=== PATIENT | female | born 1995 | race Caucasian/White ===

== ENCOUNTER 2017-11-15 10:04 | Inpatient (IN) | payer BC ==
[2017-11-15] MEDS ORDERED: Ondansetron 4 MG/2 ML SDV IVPUSH PRN (12:18)
[2017-11-15] MEDS ORDERED: Calcium Gluconate 10% 1 GM/10 ML SDV IV PRN (12:18)
[2017-11-15] MEDS ORDERED: Magnesium Sulfate/Water 4 GM in Premix Bag 1 BAG IV ONE (12:18)
[2017-11-15] MEDS ORDERED: Labetalol 100 MG/20 ML MDV IVPUSH ONE (12:18)
[2017-11-15] MEDS ORDERED: Magnesium Sulfate/Water 2 GM in Premix Bag 1 BAG IV ONE (12:18)
[2017-11-15] MEDS ORDERED: Sodium Chloride 0.9% 10 ML Syringe FLUSH PRN (12:18)
--- NOTE | 2017-11-15 12:23 | PCM.LDHP ---
L&D History of Present Illness - General Date of Service: 11/15/17 Admit Problem/Dx: Patient Status Order with Admit Dx/Problem 11/15/17 12:18 Patient Status [ADT] Routine Admission Diagnosis/Problem Admission Diagnosis/Problem Pre-eclampsia Source of Information: Patient History Limitations: Reports: No Limitations - History of Present Illness Introduction:: Patient is a 22 y/o at 38 0/7 wks who presented to L&D today for concerns of possible labor / decreased FM. Contractions started earlier this AM. Denies bleeding, LOF. No issues with headaches, vision changes, or RUQ pain. 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 Para: 0 LMP (Approximate): Social & Family History - Tobacco Use Smoking Status *Q: Former Smoker - Alcohol Use Alcohol Use History: No - Recreational Drug Use Recreational Drug Use: No H&P Review of Systems - Review of Systems: Review Of Systems: See Below General: Reports: No Symptoms Pulmonary: Reports: No Symptoms Cardiovascular: Reports: No Symptoms Gastrointestinal: Reports: No Symptoms Genitourinary: Reports: No Symptoms Musculoskeletal: Reports: No Symptoms Psychiatric: Reports: No Symptoms Neurological: Reports: No Symptoms L&D Exam - Exam Exam: See Below - Vital Signs Vital Signs: Last Vital Signs Temp 37.2 C 11/15/17 10:23 Pulse 60 11/15/17 10:23 Resp 18 11/15/17 10:23 BP 166/94 H 11/15/17 10:23 Pulse Ox 100 11/15/17 10:23 Weight: 87.09 kg - OB Specific Contraction Intensity: Moderate Movement: Active Heart Tones: Present Heart Tones per Min: 140 Heart Rate (FHR) Variability: Moderate (6-25 bmp) Presentation: Vertex - Hernandez Score Hernandez Score Cervix Position: Midposition Hernandez Score Consistency: Soft Hernandez Score Effacement: 31-50% Hernandez Score Dilation: Closed Hernandez Score 's Station: -2 Hernandez Score Total: 5 - Exam General: Alert, Oriented, Cooperative Lungs: Clear to Auscultation, Normal Respiratory Effort Cardiovascular: Regular Rate, Regular Rhythm GI/Abdominal Exam: Soft, Non-Tender Genitourinary: Normal external exam Extremities: Normal Inspection Skin: Warm, Dry, Intact Neurological: No: Clonus DTR: 3+: Patella (L), Patella (R) - Patient Data Lab Results Last 24 hrs: Laboratory Results - last 24 hr 11/15/17 11/15/17 Range/Units 11:45 11:45 WBC 9.92 (3.98-10.04) K/mm3 RBC 4.04 (3.98-5.22) M/mm3 Hgb 11.9 (11.2-15.7) gm/L Hct 35.7 (34.1-44.9) % MCV 88.4 (79.4-94.8) fl MCH 29.5 (25.6-32.2) pg MCHC 33.3 (32.2-35.5) g/dl RDW Std Deviation 46.1 (36.4-46.3) fL Plt Count 195 (182-369) K/mm3 MPV 10.3 (9.4-12.3) fl Neut % (Auto) 73.4 H (34.0-71.1) % Lymph % (Auto) 15.9 L (19.3-51.7) % Coffee % (Auto) 9.3 (4.7-12.5) % Eos % (Auto) 0.8 (0.7-5.8) Baso % (Auto) 0.2 (0.1-1.2) % Neut # (Auto) 7.28 H (1.56-6.13) K/mm3 Lymph # (Auto) 1.58 (1.18-3.74) K/mm3 [place] # (Auto) 0.92 H (0.24-0.36) K/mm3 Eos # (Auto) 0.08 (0.04-0.36) K/mm3 Baso # (Auto) 0.02 (0.01-0.08) K/mm3 BUN 3 L (7-18) mg/dL Creatinine 0.6 (0.55-1.02) mg/dL Est Cr Clr Drug Dosing 118.29 mL/min Estimated GFR (MDRD) > 60 (>60) mL/min AST 20 (15-37) U/L ALT 16 (14-59) U/L Result Diagrams: 11/15/17 11:45 11/15/17 11:45 - Problem List (1) 38 weeks gestation of SNOMED Code(s): 60797457 ICD Code: Z3A.38 - 38 WEEKS GESTATION OF Status: Acute Current Visit: Yes (2) Preeclampsia SNOMED Code(s): 016192813 ICD Code: O14.90 - UNSPECIFIED PRE-ECLAMPSIA, UNSPECIFIED TRIMESTER Status : Acute Current Visit: Yes Qualifiers: Trimester: third trimester Qualified Code(s): O14.93 - Unspecified pre- eclampsia, third trimester Problem List Initiated/Reviewed/Updated: Yes Orders Last 24hrs: Active Orders 24 hr Category Date Time Status Patient Status [ADT] Routine ADT 11/15/17 12:18 Ordered Bedrest Bathroom Privileges [RC] ASDIRECTED Care 11/15/17 12:21 Ordered Bedrest [RC] ASDIRECTED Care 11/15/17 12:18 Ordered Communication Order [RC] ASDIRECTED Care 11/15/17 12:18 Ordered Communication Order [RC] ASDIRECTED Care 11/15/17 12:18 Ordered Monitoring [RC] CONTINUOUS Care 11/15/17 12:18 Ordered Non Stress Test [RC] PER UNIT ROUTINE Care 11/15/17 12:18 Ordered Notify Provider Status Change [RC] ASDIRECTED Care 11/15/17 12:18 Ordered Notify Provider Vital Signs [RC] ASDIRECTED Care 11/15/17 12:18 Ordered Notify Provider [RC] ASDIRECTED Care 11/15/17 12:18 Ordered Notify Provider [RC] PRN Care 11/15/17 12:18 Ordered Oxygen Therapy [RC] PRN Care 11/15/17 12:18 Ordered Peripheral IV Care [RC] . DIRECTED Care 11/15/17 12:22 Ordered Vital Signs [RC] ASDIRECTED Care 11/15/17 12:18 Ordered Regular Diet [DIET] Diet 11/15/17 Lunch Ordered ALANINE AMINOTRANSFERASE,ALT [CHEM] Stat Lab 11/15/17 11:45 Results ASPARTATE AMNIOTRANSFERASE,AST [CHEM] Stat Lab 11/15/17 11:45 Results BLOOD UREA NITROGEN,BUN [CHEM] Stat Lab 11/15/17 11:45 Results CREATININE W/GFR [CHEM] Stat Lab 11/15/17 11:45 Results LACTATE DEHYDROGENASE,LDH [CHEM] Stat Lab 11/15/17 11:45 Results RAPID PLASMA REAGIN,RPR [CHEM] Routine Lab 11/15/17 12:18 Ordered TYPE AND SCREEN [BBK] Routine Lab 11/15/17 12:18 Ordered UA W/O MICROSCOPIC [URIN] Stat Lab 11/15/17 11:31 Ordered URIC ACID [CHEM] Stat Lab 11/15/17 11:45 Results Calcium Gluconate Med 11/15/17 12:18 Ordered 1 gm IV ASDIRECTED PRN Labetalol [Normodyne] Med 11/15/17 12:18 Once 20 mg IVPUSH ONETIME ONE Lactated Ringers [Ringers, Lactated] 1,000 ml Med 11/15/17 12:30 Ordered IV ASDIRECTED Magnesium Sulfate/Water [Magnesium Sulfate 2 GM in Med 11/15/17 12:18 Ordered Water 50 ML] 2 gm Premix Bag 1 bag IV ONETIME Magnesium Sulfate/Water [Magnesium Sulfate 4 GM in Med 11/15/17 12:18 Ordered Water 100 ML] 4 gm Premix Bag 1 bag IV ONETIME Magnesium Sulfate/Water [Magnesium Sulfate 40 GM in Med 11/15/17 12:30 Ordered Water 1000 ML] 40 gm in 1,000 ml IV ASDIRECTED Nalbuphine [Nubain] Med 11/15/17 12:18 Ordered 10 mg IVPUSH Q2H PRN Ondansetron [Zofran] Med 11/15/17 12:18 Ordered 4 mg IVPUSH Q4H PRN Oxytocin/Lactated Ringers [Pitocin in LR 10 Units/1,000 Med 11/15/17 12:30 Ordered ML] 10 unit in 1,000 ml IV .CONTINUOUS Sodium Chloride 0.9% [Saline Flush] Med 11/15/17 12:18 Ordered 10 ml FLUSH ASDIRECTED PRN Blood Pressure [OM.PC] ASDIRECTED Oth 11/15/17 12:30 Ordered Deep Tendon Reflexes [WOMSER] ASDIRECTED Oth 11/15/17 12:30 Ordered Electronic Heart Tones Internal [WOMSER] Per Unit Oth 11/15/17 12:18 Ordered Routine Medication Administration Instruction [OM.PC] Per Unit Oth 11/15/17 12:20 Ordered Routine PIH Panel [OM.PC] Stat Ot 11/15/17 11:30 Ordered Peripheral IV Insertion Adult [OM.PC] Urgent Oth 11/15/17 12:18 Ordered Resuscitation Status Routine Resus Stat 11/15/17 12:18 Ordered Assessment/Plan Comment:: 22 y/o at 38 0/7 wks who presented with concerns for labor. Cervix not dilated, however, patient with multiple upper range mild BP's and also several severe range BP's. Labs done and WNL. Will start IOL for preeclampsia with severe features. Sharpe bulb placed. Will place cytotec if contractions begin to space out. IV labetalol to be given for findings of severe range BP's. Will then start magnesium. Pain management per patient preference. GBS negative, no need for antibiotics. Anticipate
[2017-11-15] MEDS ORDERED: Oxytocin/Lactated Ringers 10 UNIT/1,000 ML BAG IV SCH ×2 (12:30→19:15)
[2017-11-15] MEDS ORDERED: Magnesium Sulfate/Water 100 ML ONE (12:32)
[2017-11-15] MEDS: Lactated Ringers 1,000 ML IV SCH (12:50)
[2017-11-15] MEDS: Magnesium Sulfate/Water 40 GM/1,000 ML BAG IV SCH (13:59)
[2017-11-15] MEDS ORDERED: Misoprostol 25 MCG (1/4 of 100 MCG) Tab VAG SCH (15:00)
[2017-11-15] MEDS ORDERED: Acetaminophen 325 MG Tab PO PRN (16:31)
--- NOTE | 2017-11-15 20:16 | PCM.PNLD ---
Labor Progress Note - VS & Meds Vital Signs: Last Vital Signs Temp 36.7 C 11/15/17 12:18 Pulse 81 11/15/17 12:50 Resp 16 11/15/17 12:18 BP 146/89 H 11/15/17 12:50 Pulse Ox 98 11/15/17 12:18 Active Medications: Current Medications Acetaminophen (Tylenol) 650 mg PO Q4H PRN PRN Reason: Pain Last Admin: 11/15/17 17:00 Dose: 650 mg Calcium Gluconate (Calcium Gluconate) 1 gm IV ASDIRECTED PRN PRN Reason: respiratory distress Lactated Ringer's (Ringers, Lactated) 1,000 mls @ 75 mls/hr IV ASDIRECTED ANDRÉS Last Infusion: 11/15/17 19:31 Dose: 50 mls/hr Magnesium Sulfate (Magnesium Sulfate 40 Gm In Water 1000 Ml) 40 gm in 1,000 mls @ 50 mls/hr IV ASDIRECTED ANDRÉS Last Admin: 11/15/17 13:59 Dose: 50 mls/hr Oxytocin/Lactated Ringer's (Pitocin In Lr 10 Units/1,000 Ml) 10 unit in 1,000 mls @ 500 mls/hr IV .CONTINUOUS ANDRÉS Oxytocin/Lactated Ringer's (Pitocin In Lr 10 Units/1,000 Ml) 10 unit in 1,000 mls @ 12 mls/hr IV TITRATE ANDRÉS; Protocol Last Admin: 11/15/17 19:29 Dose: 2 munits/min, 12 mls/hr Misoprostol (Cytotec) 25 mcg VAG .ONETIME ANDRÉS Last Admin: 11/15/17 15:04 Dose: 25 mcg Nalbuphine HCl (Nubain) 10 mg IVPUSH Q2H PRN PRN Reason: pain Ondansetron HCl (Zofran) 4 mg IVPUSH Q4H PRN PRN Reason: Nausea/Vomiting Sodium Chloride (Saline Flush) 10 ml FLUSH ASDIRECTED PRN PRN Reason: Keep Vein Open Discontinued Medications Magnesium Sulfate 4 gm/ Premix 100 mls @ 300 mls/hr IV ONETIME ONE Stop: 11/15/17 12:37 Last Admin: 11/15/17 13:04 Dose: 300 mls/hr Magnesium Sulfate 2 gm/ Premix 50 mls @ 300 mls/hr IV ONETIME ONE Stop: 11/15/17 12:27 Last Admin: 11/15/17 12:55 Dose: 300 mls/hr Magnesium Sulfate (Magnesium Sulfate 4 Gm In Water 100 Ml) Confirm Administered Dose 100 mls @ as directed .ROUTE .STK-MED ONE Stop: 11/15/17 12:33 Last Admin: 11/15/17 16:05 Dose: Not Given Labetalol HCl (Normodyne) 20 mg IVPUSH ONETIME ONE; Protocol Stop: 11/15/17 12:19 Last Admin: 11/15/17 12:50 Dose: 20 mg - Uterine Contractions Uterine Monitoring Mode: External [place] Contraction Intensity: Moderate - Monitoring Monitor Mode: External Ultrasound Heart Rate (FHR) Baseline: 140 Heart Rate (FHR) Variability: Moderate (6-25 bmp) Accelerations: Present, 15x15 Decelerations: None - Labor Progress (Free Text) Labor Progress: Doing well. Cytotec placed at 1500 due to contractions spacing out. Sharpe bulb remains in place. Will monitor uterine activity, cytotec vs initiation of pitocin in 1 hour. BP's mild range since labetalol and magnesium. Continue to monitor closely
[2017-11-15] MEDS ORDERED: Bupivacaine 0.25% 10 ML SDV ONE (22:00)
[2017-11-15] MEDS: Nalbuphine 20 MG/ML 1 ML Syringe IVPUSH PRN (22:44)
[2017-11-16] MEDS: Nalbuphine 20 MG/ML 1 ML Syringe IVPUSH PRN (01:13)
[2017-11-16] MEDS ORDERED: ePHEDrine 50 MG/ML SDV IVPUSH PRN (02:20)
[2017-11-16] MEDS ORDERED: fentaNYL 100 MCG/2 ML SDV EPIDUR PRN (02:20)
[2017-11-16] MEDS ORDERED: diphenhydrAMINE 50 MG/ML SDV IVPUSH PRN ×2 (02:20→16:31)
[2017-11-16] MEDS: Bupivacaine/fentaNYL/NS 100 ML Bag EPIDUR SCH ×2 (02:49→10:20)
--- NOTE | 2017-11-16 02:55 | PCM.PREANE ---
Preanesthetic Assessment - Anesthesia/Transfusion/Family Hx Anesthesia History: No Prior Anesthesia Family History of Anesthesia Reaction: No Transfusion History: No Prior Transfusion(s) - Review of Systems General: No Symptoms Pulmonary: No Symptoms Cardiovascular: No Symptoms Gastrointestinal: Abdominal Pain (labor contractions) Neurological: No Symptoms Other: Reports: None - Physical Assessment Pulse: 81 O2 Sat by Pulse Oximetry: 98 Respiratory Rate: 16 Blood Pressure: 146/89 Temperature: 36.3 C Vital Signs: Last Vital Signs Temp 36.7 C 11/15/17 12:18 Pulse 81 11/15/17 12:50 Resp 16 11/15/17 12:18 BP 146/89 H 11/15/17 12:50 Pulse Ox 98 11/15/17 12:18 Height: 1.57 m Weight: 87.09 kg ASA Class: 2 Mental Status: Alert & Oriented x3 Airway Class: Mallampati = 1 Dentition: Reports: Normal Dentition Thyro-Mental Finger Breadths: 3 Mouth Opening Finger Breadths: 3 ROM/Head Extension: Full Lungs: Clear to Auscultation, Normal Respiratory Effort Cardiovascular: Regular Rate, Regular Rhythm - Lab Values: Laboratory Last Values WBC 9.92 K/mm3 (3.98-10.04) 11/15/17 11:45 RBC 4.04 M/mm3 (3.98-5.22) 11/15/17 11:45 Hgb 11.9 gm/L (11.2-15.7) 11/15/17 11:45 Hct 35.7 % (34.1-44.9) 11/15/17 11:45 MCV 88.4 fl (79.4-94.8) 11/15/17 11:45 MCH 29.5 pg (25.6-32.2) 11/15/17 11:45 MCHC 33.3 g/dl (32.2-35.5) 11/15/17 11:45 RDW Std Deviation 46.1 fL (36.4-46.3) 11/15/17 11:45 Plt Count 195 K/mm3 (182-369) 11/15/17 11:45 MPV 10.3 fl (9.4-12.3) 11/15/17 11:45 Neut % (Auto) 73.4 % (34.0-71.1) H 11/15/17 11:45 Lymph % (Auto) 15.9 % (19.3-51.7) L 11/15/17 11:45 [place] % (Auto) 9.3 % (4.7-12.5) 11/15/17 11:45 Eos % (Auto) 0.8 (0.7-5.8) 11/15/17 11:45 Baso % (Auto) 0.2 % (0.1-1.2) 11/15/17 11:45 Neut # (Auto) 7.28 K/mm3 (1.56-6.13) H 11/15/17 11:45 Lymph # (Auto) 1.58 K/mm3 (1.18-3.74) 11/15/17 11:45 [place] # (Auto) 0.92 K/mm3 (0.24-0.36) H 11/15/17 11:45 Eos # (Auto) 0.08 K/mm3 (0.04-0.36) 11/15/17 11:45 Baso # (Auto) 0.02 K/mm3 (0.01-0.08) 11/15/17 11:45 BUN 3 mg/dL (7-18) L 11/15/17 11:45 Creatinine 0.6 mg/dL (0.55-1.02) 11/15/17 11:45 Est Cr Clr Drug Dosing 118.29 mL/min 11/15/17 11:45 Estimated GFR (MDRD) > 60 mL/min (>60) 11/15/17 11:45 Uric Acid 6.1 mg/dL (2.6-6.0) H 11/15/17 11:45 AST 20 U/L (15-37) 11/15/17 11:45 ALT 16 U/L (14-59) 11/15/17 11:45 Lactate Dehydrogenase 157 U/L (81-234) 11/15/17 11:45 Urine Color Yellow (Yellow) 11/15/17 15:08 Urine Appearance Slt cloudy (Clear) H 11/15/17 15:08 Urine pH 7.0 (5.0-8.0) 11/15/17 15:08 Ur Specific [place] > or = 1.030 (1.005-1.030) 11/15/17 15:08 Urine Protein Negative (Negative) 11/15/17 15:08 Urine Glucose (UA) Negative (Negative) 11/15/17 15:08 Urine Ketones 1+ (Negative) H 11/15/17 15:08 Urine Occult Blood Trace-lysed (Negative) H 11/15/17 15:08 Urine Nitrite Negative (Negative) 11/15/17 15:08 Urine Bilirubin Negative (Negative) 11/15/17 15:08 Urine Urobilinogen 0.2 (0.2-1.0) 11/15/17 15:08 Ur Leukocyte Esterase Negative (Negative) 11/15/17 15:08 RPR Non-reactive (NONREACTIVE) 11/15/17 11:45 Blood Type O POSITIVE 11/15/17 11:45 Gel Antibody Screen Negative 11/15/17 11:45 - Allergies Allergies/Adverse Reactions: Allergies Allergy/AdvReac Type Severity Reaction Status Date / Time No Known Allergies Allergy Verified 11/15/17 11:30 - Anesthesia Plan Pre-Op Medication Ordered: None - Acknowledgements Anesthesia Type Planned: Epidural Pt an Appropriate Candidate for the Planned Anesthesia: Yes Alternatives and Risks of Anesthesia Discussed w Pt/Guardian: Yes Pt/Guardian Understands and Agrees with Anesthesia Plan: Yes PreAnesthesia Questionnaire - Past Health History Medical/Surgical History: Denies Medical/Surgical History Gastrointestinal History: Reports: GERD 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 Smoking Status *Q: Former Smoker Second Hand Smoke Exposure: No Recreational Drug Use History: No - HOME MEDS Home Medications: Home Meds Vits #93/Iron Fum/FA [ Formula Tablet] 1 tab PO DAILY 11/15/17 [History] Pseudoephedrine HCl [Sudafed] 1 tab PO DAILY 11/15/17 [History] - CURRENT (IN HOUSE) MEDS Current Meds: Current Medications Acetaminophen (Tylenol) 650 mg PO Q4H PRN PRN Reason: Pain Last Admin: 11/15/17 17:00 Dose: 650 mg Calcium Gluconate (Calcium Gluconate) 1 gm IV ASDIRECTED PRN PRN Reason: respiratory distress Diphenhydramine HCl (Benadryl) 25 mg IVPUSH Q6H PRN PRN Reason: Itching Ephedrine Sulfate (Ephedrine Sulfate) 5 mg IVPUSH ASDIRECTED PRN PRN Reason: HYPOTENTSION Fentanyl (Sublimaze) 100 mcg EPIDUR Q3H PRN PRN Reason: Pain Last Admin: 11/16/17 02:48 Dose: 100 mcg Fentanyl/Bupivacaine HCl (Fentanyl/Bupivacaine/Ns 2 Mcg-0.125% 100 Ml) 100 ml EPIDUR ASDIRECTED ANDRÉS Last Admin: 11/16/17 02:49 Dose: 100 ml Lactated Ringer's (Ringers, Lactated) 1,000 mls @ 75 mls/hr IV ASDIRECTED ANDRÉS Last Infusion: 11/16/17 00:07 Dose: 5 mls/hr Magnesium Sulfate (Magnesium Sulfate 40 Gm In Water 1000 Ml) 40 gm in 1,000 mls @ 50 mls/hr IV ASDIRECTED ANDRÉS Last Admin: 11/15/17 13:59 Dose: 50 mls/hr Oxytocin/Lactated Ringer's (Pitocin In Lr 10 Units/1,000 Ml) 10 unit in 1,000 mls @ 500 mls/hr IV .CONTINUOUS ANDRÉS Oxytocin/Lactated Ringer's (Pitocin In Lr 10 Units/1,000 Ml) 10 unit in 1,000 mls @ 12 mls/hr IV TITRATE ANDRÉS; Protocol Last Titration: 11/15/17 23:50 Dose: 11 munits/min, 66 mls/hr Misoprostol (Cytotec) 25 mcg VAG .ONETIME ANDRÉS Last Admin: 11/15/17 15:04 Dose: 25 mcg Nalbuphine HCl (Nubain) 10 mg IVPUSH Q2H PRN PRN Reason: pain Last Admin: 11/16/17 01:13 Dose: 10 mg Ondansetron HCl (Zofran) 4 mg IVPUSH Q4H PRN PRN Reason: Nausea/Vomiting Sodium Chloride (Saline Flush) 10 ml FLUSH ASDIRECTED PRN PRN Reason: Keep Vein Open Discontinued Medications Magnesium Sulfate 4 gm/ Premix 100 mls @ 300 mls/hr IV ONETIME ONE Stop: 11/15/17 12:37 Last Admin: 11/15/17 13:04 Dose: 300 mls/hr Magnesium Sulfate 2 gm/ Premix 50 mls @ 300 mls/hr IV ONETIME ONE Stop: 11/15/17 12:27 Last Admin: 11/15/17 12:55 Dose: 300 mls/hr Magnesium Sulfate (Magnesium Sulfate 4 Gm In Water 100 Ml) Confirm Administered Dose 100 mls @ as directed .ROUTE .STK-MED ONE Stop: 11/15/17 12:33 Last Admin: 11/15/17 16:05 Dose: Not Given Labetalol HCl (Normodyne) 20 mg IVPUSH ONETIME ONE; Protocol Stop: 11/15/17 12:19 Last Admin: 11/15/17 12:50 Dose: 20 mg
[2017-11-16] MEDS: Lactated Ringers 1,000 ML IV SCH ×2 (05:26→21:00)
[2017-11-16] MEDS ORDERED: Oxytocin/Lactated Ringers 20 UNIT/1,000 ML BAG IV SCH ×2 (07:00→09:15)
--- NOTE | 2017-11-16 08:00 | PCM.PNLD ---
Labor Progress Note - VS & Meds Vital Signs: Last Vital Signs Temp 36.3 C 11/16/17 02:55 Pulse 81 11/16/17 02:55 Resp 16 11/16/17 02:55 BP 146/89 H 11/16/17 02:55 Pulse Ox 98 11/16/17 02:55 Active Medications: Current Medications Acetaminophen (Tylenol) 650 mg PO Q4H PRN PRN Reason: Pain Last Admin: 11/15/17 17:00 Dose: 650 mg Calcium Gluconate (Calcium Gluconate) 1 gm IV ASDIRECTED PRN PRN Reason: respiratory distress Diphenhydramine HCl (Benadryl) 25 mg IVPUSH Q6H PRN PRN Reason: Itching Ephedrine Sulfate (Ephedrine Sulfate) 5 mg IVPUSH ASDIRECTED PRN PRN Reason: HYPOTENTSION Fentanyl (Sublimaze) 100 mcg EPIDUR Q3H PRN PRN Reason: Pain Last Admin: 11/16/17 02:48 Dose: 100 mcg Fentanyl/Bupivacaine HCl (Fentanyl/Bupivacaine/Ns 2 Mcg-0.125% 100 Ml) 100 ml EPIDUR ASDIRECTED ANDRÉS Last Admin: 11/16/17 02:49 Dose: 100 ml Lactated Ringer's (Ringers, Lactated) 1,000 mls @ 75 mls/hr IV ASDIRECTED ANDRÉS Last Infusion: 11/16/17 07:20 Dose: 30 mls/hr Magnesium Sulfate (Magnesium Sulfate 40 Gm In Water 1000 Ml) 40 gm in 1,000 mls @ 50 mls/hr IV ASDIRECTED ANDRÉS Last Admin: 11/15/17 13:59 Dose: 50 mls/hr Oxytocin/Lactated Ringer's (Pitocin In Lr 10 Units/1,000 Ml) 10 unit in 1,000 mls @ 500 mls/hr IV .CONTINUOUS ANDRÉS Oxytocin/Lactated Ringer's (Pitocin In Lr 10 Units/1,000 Ml) 10 unit in 1,000 mls @ 12 mls/hr IV TITRATE ANDRÉS; Protocol Last Titration: 11/16/17 06:43 Dose: 15 munits/min, 90 mls/hr Oxytocin/Lactated Ringer's (Pitocin In Lr 20 Units/1,000 Ml) 20 unit in 1,000 mls @ 45 mls/hr IV TITRATE ANDRÉS; Protocol Last Admin: 11/16/17 07:17 Dose: 45 mls/hr Misoprostol (Cytotec) 25 mcg VAG .ONETIME ANDRÉS Last Admin: 11/15/17 15:04 Dose: 25 mcg Nalbuphine HCl (Nubain) 10 mg IVPUSH Q2H PRN PRN Reason: pain Last Admin: 11/16/17 01:13 Dose: 10 mg Ondansetron HCl (Zofran) 4 mg IVPUSH Q4H PRN PRN Reason: Nausea/Vomiting Sodium Chloride (Saline Flush) 10 ml FLUSH ASDIRECTED PRN PRN Reason: Keep Vein Open Discontinued Medications Magnesium Sulfate 4 gm/ Premix 100 mls @ 300 mls/hr IV ONETIME ONE Stop: 11/15/17 12:37 Last Admin: 11/15/17 13:04 Dose: 300 mls/hr Magnesium Sulfate 2 gm/ Premix 50 mls @ 300 mls/hr IV ONETIME ONE Stop: 11/15/17 12:27 Last Admin: 11/15/17 12:55 Dose: 300 mls/hr Magnesium Sulfate (Magnesium Sulfate 4 Gm In Water 100 Ml) Confirm Administered Dose 100 mls @ as directed .ROUTE .STK-MED ONE Stop: 11/15/17 12:33 Last Admin: 11/15/17 16:05 Dose: Not Given Oxytocin 20 unit/ Lactated (Ringer's) 1,002 mls @ 45.09 mls/hr IV TITRATE [facility] Labetalol HCl (Normodyne) 20 mg IVPUSH ONETIME ONE; Protocol Stop: 11/15/17 12:19 Last Admin: 11/15/17 12:50 Dose: 20 mg - Uterine Contractions Uterine Monitoring Mode: External [place] Contraction Intensity: Moderate - Monitoring Monitor Mode: External Ultrasound Heart Rate (FHR) Baseline: 120 Heart Rate (FHR) Variability: Moderate (6-25 bmp) Accelerations: Present, 15x15 Decelerations: None - Vaginal Exam Dilation (cm): 4 Effacement (Percent): 70 Station: -1 Cervical Position: Midposition - Labor Progress (Free Text) Labor Progress: Doing well. Had SROM around 0130 and became very uncomfortable and had epidural placed shortly thereafter. Pitocin currently at 13. BP''s mild range. Cervix exam similar to around time of SROM. IUPC placed for more accurate titration of pitocin. Will reassess in another few hours.
[2017-11-16] MEDS: Magnesium Sulfate/Water 40 GM/1,000 ML BAG IV SCH (10:05)
[2017-11-16] MEDS ORDERED: Nalbuphine 20 MG/ML 1 ML Syringe IVPUSH PRN (14:46)
[2017-11-16] MEDS ORDERED: ceFAZolin 2 GM in Premix Bag 1 BAG IV ONE (14:46)
[2017-11-16] MEDS ORDERED: Citric Acid/Sodium Citrate Solution 30 ML Cup PO ONE (14:46)
[2017-11-16] MEDS ORDERED: Metoclopramide 10 MG/2 ML SDV IVPUSH ONE (14:46)
[2017-11-16] MEDS ORDERED: Lactated Ringers 2,000 ML ONE (15:01)
[2017-11-16] MEDS ORDERED: Ondansetron 4 MG/2 ML SDV ONE (15:01)
[2017-11-16] MEDS ORDERED: ceFAZolin 1 GM Vial ONE (15:01)
[2017-11-16] MEDS ORDERED: Ketorolac 30 MG/ML SDV ONE (15:01)
[2017-11-16] MEDS ORDERED: Oxytocin 10 Units/1 ML SDV ONE (15:01)
[2017-11-16] MEDS ORDERED: Lidocaine 2% with EPINEPHrine 1:200,000 20 ML SDV ONE (15:02)
[2017-11-16] MEDS ORDERED: Sodium Bicarbonate 8.4% 50 MEQ/50 ML SDV ONE (15:02)
--- NOTE | 2017-11-16 15:02 | PCM.SN ---
- Free Text/Narrative Note: 1430 Patient has been on 30 of pitocin. Contractions adequate or just beneath 200 MVU's. Reviewed with patient that her cervix has been the same since about 0100 this am at time of rupture. Options at this time are we can discontinue pitocin and do a washout and re-start. This would be an appropriate option as and maternal status are reassuring. Other option is that we can move forward with a . Patient and her partner given option to discuss by themselves and ultimately have decided to move forward with a . Anesthesia, peds teams made aware. Elisabeth Mosley MD
[2017-11-16] MEDS ORDERED: Morphine PF 1 MG/ML Amp ONE ×2 (15:08)
[2017-11-16] MEDS ORDERED: Morphine PF 10 MG/10 ML SDV ONE (15:08)
[2017-11-16] MEDS ORDERED: fentaNYL 100 MCG/2 ML SDV ONE (15:08)
[2017-11-16] MEDS ORDERED: Phenylephrine/Normal Saline 100 MCG/ML 10 ML Syringe ONE (16:07)
--- NOTE | 2017-11-16 16:23 | PCM.OPNOTE ---
- General Post-Op/Procedure Note Date of Surgery/Procedure: 11/16/17 Operative Procedure(s): Primary low transverse Findings: Baby Boy in a vertex presentation with weight of 6 lbs 4 oz. Apgars of 8 & 9. Normal appearance of uterus, fallopian tubes, and ovaries Pre Op Diagnosis: 38 weeks gestation. Severe preeclampsia. Failure to progress in 1st stage Post-Op Diagnosis: Same Anesthesia Technique: Epidural Primary Surgeon: Elisabeth Mosley Secondary Surgeon: Cristy Stahl Anesthesia Provider: Ariadna Luke Reason Sound Assistant Was Necessary: Speed, safety of case. Pathology: Cord blood collected. Placenta discarded. Fluid Replacement, Intraop: 900 Output, Urine Amount: 200 EBL in mLs: 1,000 Complications: None Condition: Good Free Text/Narrative:: The risks, benefits, indications, potential complications, and alternatives were explained to the patient and informed consent obtained. After induction of anesthesia, the patient was placed in a supine position and then draped and prepped in the usual sterile manner. A Pfannenstiel incision was made and carried down through the subcutaneous tissue to the fascia. Fascial incision was made and extended transversely. The fascia was from the underlying rectus tissue superiorly and inferiorly. The peritoneum was identified and entered. Peritoneal incision was extended longitudinally. The utero-vesical peritoneal reflection was incised transversely and the bladder flap was bluntly freed from the lower uterine segment. A low transverse uterine incision was made sharply with a scalpel and extended bluntly in a cephalocaudad direction. A baby boy was delivered from a vertex presentation with APGARS as above. After the umbilical cord was clamped and cut cord blood was obtained for evaluation. The placenta was removed intact and appeared normal. The uterus was exteriorized and cleared of clots. The uterine outline, tubes and ovaries appeared normal. The uterine incision was closed with running locked sutures of 0 Vicryl. Hemostasis was obtained with a second imbricating layer of 0 vicryl. The uterus was then placed back into the abdomen. The infracolic gutters were cleared of blood clots. The fascia was then reapproximated with running sutures of 0 Vicryl. The sucutaneous tissue was irrigated with sterile warm normal saline, hemostasis obtained with cautery. This layer was also closed with a running 0 vicryl suture. The skin was reapproximated with running Subcuticular 4-0 monocryl sutures. Instrument, sponge, and needle counts were correct prior the abdominal closure and at the conclusion of the case.
--- NOTE | 2017-11-16 16:30 | PCM.POSTAN ---
POST ANESTHESIA ASSESSMENT - MENTAL STATUS Mental Status: Alert, Oriented - VITAL SIGNS Pulse Rate: 88 SaO2: 99 Resp Rate: 18 Blood Pressure: 131/70 Temperature: 36.3 C - RESPIRATORY Respiratory Status: Respiratory Rate WNL, Airway Patent, O2 Saturation Stable, Supplemental Oxygen - CARDIOVASCULAR CV Status: Pulse Rate WNL, Blood Pressure Stable - GASTROINTESTINAL GI Status: No Symptoms - PAIN Pain Score: 0 - POST OP HYDRATION Hydration Status: Adequate & Stable
[2017-11-16] MEDS ORDERED: Meperidine PF 50 MG/ML Syringe IVPUSH PRN (16:31)
[2017-11-16] MEDS ORDERED: Ondansetron 4 MG/2 ML SDV IVPUSH PRN (16:31)
[2017-11-16] MEDS ORDERED: Ibuprofen 600 MG Tab PO PRN (18:09)
[2017-11-16] MEDS ORDERED: Acetaminophen/oxyCODONE 325-5 MG Tab PO PRN (18:09)
[2017-11-16] MEDS ORDERED: Docusate Sodium 100 MG Cap PO PRN (18:09)
[2017-11-16] MEDS ORDERED: Naloxone 0.4 MG/ML SDV IVPUSH PRN (18:09)
[2017-11-16] MEDS ORDERED: Lanolin 100% Cream 7 GM Tube TOP PRN (18:09)
[2017-11-16] MEDS ORDERED: Ondansetron 4 MG/2 ML SDV IV PRN (18:09)
[2017-11-16] MEDS: Ketorolac 30 MG/ML SDV IVPUSH SCH (22:32)
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
[2017-11-17] MEDS: Ketorolac 30 MG/ML SDV IVPUSH SCH ×2 (05:11→10:09)
[2017-11-17] MEDS: Magnesium Sulfate/Water 40 GM/1,000 ML BAG IV SCH (08:03)
[2017-11-17] MEDS: Lactated Ringers 1,000 ML IV SCH (10:10)
[2017-11-17] MEDS: Ibuprofen 600 MG Tab PO PRN ×2 (16:17→23:08)
--- NOTE | 2017-11-17 18:08 | PCM48HPAN ---
Post Anesthesia Note - EVALUATION WITHIN 48HRS OF ANESTHETIC Vital Signs in Normal Range: Yes Patient Participated in Evaluation: Yes Respiratory Function Stable: Yes Airway Patent: Yes Cardiovascular Function Stable: Yes Hydration Status Stable: Yes Pain Control Satisfactory: Yes Nausea and Vomiting Control Satisfactory: Yes Mental Status Recovered: Yes - COMMENTS/OBSERVATIONS Free Text/Narrative:: Patient denies any anesthetic complications. Doing well resting in bed.
[2017-11-17] MEDS ORDERED: Acetaminophen 325 MG/10.15 ML ML PO PRN (21:28)
[2017-11-18] MEDS ORDERED: Acetaminophen 325 MG Tab PO PRN (00:40)
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
--- NOTE | 2017-11-18 10:22 | PCM.DCSUM1 ---
Discharge Summary - Discharge Data Discharge Date: 11/18/17 Discharge Disposition: Home, Self-Care 01 Condition: Good - Discharge Diagnosis/Problem(s) (1) 38 weeks gestation of SNOMED Code(s): 14659710 ICD Code: Z3A.38 - 38 WEEKS GESTATION OF Status: Acute Current Visit: Yes (2) Preeclampsia SNOMED Code(s): 279292610 ICD Code: O14.90 - UNSPECIFIED PRE-ECLAMPSIA, UNSPECIFIED TRIMESTER Status : Acute Current Visit: Yes Qualifiers: Trimester: third trimester Qualified Code(s): O14.93 - Unspecified pre- eclampsia, third trimester (3) Failure to progress in first stage of labor SNOMED Code(s): 087225822 ICD Code: KZM4880 - Status: Acute Current Visit: Yes (4) S/P primary low transverse SNOMED Code(s): 347591555, 63751909, 854375928, 717739912, 670328836 ICD Code: Z98.891 - HISTORY OF UTERINE SCAR FROM PREVIOUS SURGERY Status: Acute Current Visit: Yes - Patient Summary/Data Operative Procedure(s) Performed: Primary low transverse Complications: None Consults: None Recommended Follow-up Testing/Procedures: Follow up in 1 week for BP check / incision check Hospital Course: 22 y/o who presented at 38 0/7 wks with concerns of early labor. Was sergei, but only 0.5 cm dilated. Unfortunately found to be severe preeclampsia with multiple severe range BPs. Was started on IV antihypertensives and IV magnesium. Early labor augmented with vanegas bulb and cytotec. Did eventually switch to pitocin with expulsion of vanegas bulb. She had SROM, but despite 30 units of pitocin and adequate contraction pattern did not progress past 4-5 cm. Was given option for washout and re-trial of pitocin (as and maternal status reassuring) vs PLTCS and opted for . This was uncomplicated. See procedure note for full details. she was maintained on magnesium for 24 hours. She did well with normal to mild range BP's. She was discharged home on POD#2 per her request - Patient Instructions Diet: Regular Diet as Tolerated Activity: No Lifting Over 10 Pounds Activity, Other: Pelvic Rest for 6 weeks Driving: Do Not Drive (While taking narcotics ) Showering/Bathing: May Shower, No Tub Bathing/Swimming Wound/Incision Care: Keep Operative Site/Wound Site Clean and Dry Notify Provider of: Fever, Increased Pain, Swelling and Redness, Drainage, Nausea and/or Vomiting - Discharge Plan *PRESCRIPTION DRUG MONITORING PROGRAM REVIEWED*: Not Applicable *COPY OF PRESCRIPTION DRUG MONITORING REPORT IN PATIENT MIGUEL A: Not Applicable Home Medications: Home Meds Vits #93/Iron Fum/FA [ Formula Tablet] 1 tab PO DAILY 11/15/17 [History] Docusate Sodium [Colace] 100 mg PO Q12H PRN cap 11/18/17 [Rx] Ibuprofen [Motrin] 600 mg PO Q6H PRN tablet 11/18/17 [Rx] Referrals: Elisabeth Mosley MD [Primary Care Provider] - (1 week for BP check ) - Discharge Summary/Plan Comment DC Time >30 min.: No - Patient Data Vitals - Most Recent: Last Vital Signs Temp 36.8 C 11/18/17 09:00 Pulse 89 11/18/17 09:00 Resp 16 11/18/17 09:00 BP 124/73 11/18/17 09:00 Pulse Ox 99 11/18/17 09:00 Weight - Most Recent: 87.09 kg I&O - Last 24 hours: Intake & Output 11/17/17 11/18/17 11/18/17 22:59 06:59 14:59 Intake Total 1275 Output Total 300 Balance 975 Med Orders - Current: Current Medications Acetaminophen (Tylenol) 650 mg PO Q6H PRN PRN Reason: Pain Diphenhydramine HCl (Benadryl) 25 mg IVPUSH Q6H PRN PRN Reason: Pruritis Docusate Sodium (Colace) 100 mg PO Q12H PRN PRN Reason: Constipation Emollient Ointment (Lansinoh Hpa) 0 gm TOP ASDIRECTED PRN PRN Reason: Sore Nipples Lactated Ringer's (Ringers, Lactated) 1,000 mls @ 75 mls/hr IV ASDIRECTED ANDRÉS Last Admin: 11/17/17 10:10 Dose: 75 mls/hr Magnesium Sulfate (Magnesium Sulfate 40 Gm In Water 1000 Ml) 40 gm in 1,000 mls @ 50 mls/hr IV ASDIRECTED ANDRÉS Last Admin: 11/17/17 08:03 Dose: 50 mls/hr Ibuprofen (Motrin) 600 mg PO Q6H PRN PRN Reason: mild pain or fever Last Admin: 11/17/17 23:08 Dose: 600 mg Meperidine HCl (Demerol) 12.5 mg IVPUSH ONETIME PRN PRN Reason: Shivering Naloxone HCl (Narcan) 0.1 mg IVPUSH SEECOMMENT PRN PRN Reason: Respiratory Depression Ondansetron HCl (Zofran) 4 mg IVPUSH ONETIME PRN PRN Reason: Nausea/Vomiting Ondansetron HCl (Zofran) 4 mg IV Q8H PRN PRN Reason: Nausea/Vomiting Oxycodone/Acetaminophen (Percocet 325-5 Mg) 2 tab PO Q4H PRN PRN Reason: Pain (moderate 4-6) Discontinued Medications Acetaminophen (Tylenol) 650 mg PO Q4H PRN PRN Reason: Pain Last Admin: 11/15/17 17:00 Dose: 650 mg Acetaminophen (Tylenol) 650 mg PO Q6H PRN PRN Reason: Pain Calcium Gluconate (Calcium Gluconate) 1 gm IV ASDIRECTED PRN PRN Reason: respiratory distress Citric Acid/Sodium Citrate (Bicitra Solution) 30 ml PO ONETIME ONE Stop: 11/16/17 14:47 Last Admin: 11/16/17 15:21 Dose: 30 ml Diphenhydramine HCl (Benadryl) 25 mg IVPUSH Q6H PRN PRN Reason: Itching Ephedrine Sulfate (Ephedrine Sulfate) 5 mg IVPUSH ASDIRECTED PRN PRN Reason: HYPOTENTSION Fentanyl (Sublimaze) 100 mcg EPIDUR Q3H PRN PRN Reason: Pain Last Admin: 11/16/17 02:48 Dose: 100 mcg Fentanyl/Bupivacaine HCl (Fentanyl/Bupivacaine/Ns 2 Mcg-0.125% 100 Ml) 100 ml EPIDUR ASDIRECTED ANDRÉS Last Admin: 11/16/17 10:20 Dose: 100 ml Magnesium Sulfate 4 gm/ Premix 100 mls @ 300 mls/hr IV ONETIME ONE Stop: 11/15/17 12:37 Last Admin: 11/15/17 13:04 Dose: 300 mls/hr Magnesium Sulfate 2 gm/ Premix 50 mls @ 300 mls/hr IV ONETIME ONE Stop: 11/15/17 12:27 Last Admin: 11/15/17 12:55 Dose: 300 mls/hr Oxytocin/Lactated Ringer's (Pitocin In Lr 10 Units/1,000 Ml) 10 unit in 1,000 mls @ 500 mls/hr IV .CONTINUOUS ANDRÉS Magnesium Sulfate (Magnesium Sulfate 4 Gm In Water 100 Ml) Confirm Administered Dose 100 mls @ as directed .ROUTE .STK-MED ONE Stop: 11/15/17 12:33 Last Admin: 11/15/17 16:05 Dose: Not Given Oxytocin/Lactated Ringer's (Pitocin In Lr 10 Units/1,000 Ml) 10 unit in 1,000 mls @ 12 mls/hr IV TITRATE ANDRÉS; Protocol Last Titration: 11/16/17 06:43 Dose: 15 munits/min, 90 mls/hr Oxytocin/Lactated Ringer's (Pitocin In Lr 20 Units/1,000 Ml) 20 unit in 1,000 mls @ 45 mls/hr IV TITRATE ANDRÉS; Protocol Last Admin: 11/16/17 07:17 Dose: 45 mls/hr Oxytocin 20 unit/ Lactated (Ringer's) 1,002 mls @ 45.09 mls/hr IV TITRATE ANDRÉS Oxytocin/Lactated Ringer's (Pitocin In Lr 20 Units/1,000 Ml) 20 unit in 1,000 mls @ 45 mls/hr IV TITRATE ANDRÉS Last Infusion: 11/16/17 13:43 Dose: 28 munits/min, 84 mls/hr Oxytocin 20 unit/ Lactated (Ringer's) 1,002 mls @ 45.09 mls/hr IV TITRATE ANDRÉS; Protocol Cefazolin Sodium/Dextrose 2 gm (/ Premix) 50 mls @ 100 mls/hr IV ONETIME ONE Stop: 11/16/17 15:15 Last Admin: 11/16/17 23:54 Dose: 100 mls/hr Ibuprofen (Motrin) 600 mg PO Q6H PRN PRN Reason: mild pain or fever Ketorolac Tromethamine (Toradol) 30 mg IVPUSH Q6H ANDRÉS Stop: 11/17/17 10:31 Last Admin: 11/17/17 10:09 Dose: 30 mg Labetalol HCl (Normodyne) 20 mg IVPUSH ONETIME ONE; Protocol Stop: 11/15/17 12:19 Last Admin: 11/15/17 12:50 Dose: 20 mg Metoclopramide HCl (Reglan) 10 mg IVPUSH ONETIME ONE Stop: 11/16/17 14:47 Last Admin: 11/16/17 15:22 Dose: 10 mg Misoprostol (Cytotec) 25 mcg VAG .ONETIME ANDRÉS Last Admin: 11/15/17 15:04 Dose: 25 mcg Nalbuphine HCl (Nubain) 10 mg IVPUSH Q2H PRN PRN Reason: pain Last Admin: 11/16/17 01:13 Dose: 10 mg Nalbuphine HCl (Nubain) 10 mg IVPUSH Q2H PRN PRN Reason: pain Ondansetron HCl (Zofran) 4 mg IVPUSH Q4H PRN PRN Reason: Nausea/Vomiting Sodium Chloride (Saline Flush) 10 ml FLUSH ASDIRECTED PRN PRN Reason: Keep Vein Open
== END 2017-11-18 15:05 | disposition home or self-care (01) | DRG 540 ==
LOC: JD.OBCHECK 10:04 → JD.OB 10:09 → JD.OBCHECK 12:18 → JD.OB 12:18 → OBSVTOIN 11-16 15:50 → JD.OB 11-16 15:51
PROVIDERS: ADMIT Obstetrics & Gynecology; ATTEND Obstetrics & Gynecology
PROC: 10H07YZ Insertion of Other Device into Products of Conception, Via Natural or Artificial Opening (ICD-10-PCS; principal; 2017-11-16)
PROC: 3E0P7VZ Introduction of Hormone into Female Reproductive, Via Natural or Artificial Opening (ICD-10-PCS; principal; 2017-11-16)
PROC: 3E033VJ Introduction of Other Hormone into Peripheral Vein, Percutaneous Approach (ICD-10-PCS; principal; 2017-11-16)
PROC: 0U7C7ZZ Dilation of Cervix, Via Natural or Artificial Opening (ICD-10-PCS; principal; 2017-11-16)
PROC: 10D00Z1 Extraction of Products of Conception, Low, Open Approach (ICD-10-PCS; principal; 2017-11-16)
PROC: 3E0R3BZ Introduction of Anesthetic Agent into Spinal Canal, Percutaneous Approach (ICD-10-PCS; 2017-11-16)
PROC: 00HU33Z Insertion of Infusion Device into Spinal Canal, Percutaneous Approach (ICD-10-PCS; 2017-11-16)
DX: O14.14 Severe pre-eclampsia complicating childbirth (principal); O62.2 Other uterine inertia; Z3A.38 38 weeks gestation of pregnancy; Z37.0 Single live birth; O36.8130 Decreased fetal movements, third trimester, not applicable or unspecified; Z87.891 Personal history of nicotine dependence
CPT/HCPCS: 36415; 51702; 59025; 81003; 82565; 83615; 84450; 84460; 84520; 84550; 85025; 85027; 86592; 86850; 86900; 86901; A9270-GY; J0690; J1885; J2270; J2274; J2300; J2370; J2405; J2590; J2765; J3010; J3475; J3490; J7120

== ENCOUNTER 2019-06-05 18:16 | Inpatient (IN) | payer MEDICAID ==
[2019-06-05] MEDS ORDERED: Sodium Chloride 0.9% 10 ML Syringe FLUSH PRN (19:32)
[2019-06-05] MEDS ORDERED: Ondansetron 4 MG/2 ML SDV IVPUSH PRN (19:32)
[2019-06-05] MEDS ORDERED: Nalbuphine 10 MG/ML Syringe IVPUSH PRN (19:32)
--- NOTE | 2019-06-05 19:33 | PCM.LDHP ---
L&D History of Present Illness - General Date of Service: 06/05/19 Admit Problem/Dx: Patient Status Order with Admit Dx/Problem 06/05/19 18:20 Patient Status [ADT] Routine Admission Diagnosis/Problem Admission Diagnosis/Problem Term Source of Information: Patient History Limitations: Reports: No Limitations - History of Present Illness Introduction:: Patient is a 24 y/o at 39 2/7 wks who presents in labor. Was in L&D earlier this am and about 1.5 cm dilated. Now about 3 cm dilated. Doing well otherwise - Related Data Allergies/Adverse Reactions: Allergies Allergy/AdvReac Type Severity Reaction Status Date / Time No Known Allergies Allergy Verified 06/05/19 19:23 Home Medications: Home Meds Vits #93/Iron Fum/FA [ Formula Tablet] 1 tab PO DAILY 11/15/17 [History] Docusate Sodium [Colace] 100 mg PO Q12H PRN cap 11/18/17 [Rx] Ibuprofen [Motrin] 600 mg PO Q6H PRN tablet 11/18/17 [Rx] Past Medical History Gastrointestinal History: Reports: GERD PROVIDER RELATIONS REP History: Reports: : 2 Para: 1 - Past Surgical History Female Surgical History: Reports: Section Social & Family History - Family History Family Medical History: Noncontributory - Tobacco Use Smoking Status *Q: Former Smoker - Caffeine Use Caffeine Use: Reports: None - Alcohol Use Alcohol Use History: No - Recreational Drug Use Recreational Drug Use: No H&P Review of Systems - Review of Systems: Review Of Systems: See Below General: Reports: No Symptoms Pulmonary: Reports: No Symptoms Cardiovascular: Reports: No Symptoms Gastrointestinal: Reports: Abdominal Pain (contractions ) Genitourinary: Reports: No Symptoms Musculoskeletal: Reports: No Symptoms Psychiatric: Reports: No Symptoms L&D Exam - Exam Exam: See Below - Vital Signs Weight: 83.007 kg - OB Specific Contraction Intensity: Moderate Movement: Active Heart Tones: Present Heart Tones per Min: 140 Heart Rate (FHR) Variability: Moderate (6-25 bmp) Presentation: Vertex - Exam General: Alert, Oriented, Cooperative Lungs: Clear to Auscultation, Normal Respiratory Effort Cardiovascular: Regular Rate, Regular Rhythm GI/Abdominal Exam: Soft, Non-Tender Genitourinary: Normal external exam Extremities: Normal Inspection Skin: Warm, Dry, Intact - Patient Data Result Diagrams: 06/05/19 19:47 - Problem List (1) 39 weeks gestation of SNOMED Code(s): 00839212 ICD Code: Z3A.39 - 39 WEEKS GESTATION OF Status: Acute Current Visit: Yes (2) History of SNOMED Code(s): 317595269 ICD Code: Z98.891 - HISTORY OF UTERINE SCAR FROM PREVIOUS SURGERY Status: Acute Current Visit: Yes Problem List Initiated/Reviewed/Updated: Yes Orders Last 24hrs: Active Orders 24 hr Category Date Time Status Patient Status [ADT] Routine ADT 06/05/19 18:20 Active Activity as Tolerated [RC] PFP Care 06/05/19 19:32 Ordered Communication Order [RC] ASDIRECTED Care 06/05/19 19:32 Ordered Heart Tones [RC] ASDIRECTED Care 06/05/19 19:33 Ordered Non Stress Test [RC] PER UNIT ROUTINE Care 06/05/19 19:15 Active Notify Provider [RC] PFP Care 06/05/19 19:32 Ordered Notify Provider [RC] PRN Care 06/05/19 19:32 Ordered Peripheral IV Care [RC] . DIRECTED Care 06/05/19 19:33 Ordered Up ad Angela [RC] ASDIRECTED Care 06/05/19 19:16 Active Vital Signs [RC] PER UNIT ROUTINE Care 06/05/19 19:15 Active Regular Diet [DIET] Diet 06/05/19 Dinner Active Regular Diet [DIET] Diet 06/05/19 Dinner Ordered CBC W/O DIFF,HEMOGRAM [HEME] Routine Lab 06/05/19 19:32 Ordered RAPID PLASMA REAGIN,RPR [CHEM] Routine Lab 06/05/19 19:32 Ordered TYPE AND SCREEN [BBK] Routine Lab 06/05/19 19:32 Ordered Lactated Ringers [Ringers, Lactated] 1,000 ml Med 06/05/19 19:45 Ordered IV ASDIRECTED Nalbuphine [Nubain] Med 06/05/19 19:32 Ordered 10 mg IVPUSH Q2H PRN Ondansetron [Zofran] Med 06/05/19 19:32 Ordered 4 mg IVPUSH Q4H PRN Oxytocin/Lactated Ringers [Pitocin in LR 10 Units/1,000 Med 06/05/19 19:45 Ordered ML] 10 unit in 1,000 ml IV .CONTINUOUS Sodium Chloride 0.9% [Saline Flush] Med 06/05/19 19:32 Ordered 10 ml FLUSH ASDIRECTED PRN Electronic Heart Tones Ext w TOCO [WOMSER] Ot 06/05/19 19:32 Ordered Routine Electronic Heart Tones Internal [WOMSER] Per Unit Ot 06/05/19 19:32 Ordered Routine Peripheral IV Insertion Adult [OM.PC] Routine Ot 06/05/19 19:32 Ordered Resuscitation Status Routine Resus Stat 06/05/19 19:15 Ordered Assessment/Plan Comment:: * Labs to be done * GBS negative, no need for antibiotics * Pain management per patient preference * Anticipate
[2019-06-05] MEDS ORDERED: Oxytocin/Lactated Ringers 10 UNIT/1,000 ML BAG IV SCH (19:45)
[2019-06-05] MEDS: Lactated Ringers 1,000 ML IV SCH ×3 (20:55→22:42)
[2019-06-05] MEDS ORDERED: diphenhydrAMINE 50 MG/ML SDV IVPUSH PRN (21:30)
[2019-06-05] MEDS ORDERED: fentaNYL 100 MCG/2 ML SDV EPIDUR PRN (21:30)
[2019-06-05] MEDS ORDERED: ePHEDrine 50 MG/ML SDV IVPUSH PRN (21:30)
[2019-06-05] MEDS ORDERED: Bupivacaine/fentaNYL/NS 100 ML Bag EPIDUR PRN (21:30)
--- NOTE | 2019-06-05 22:13 | PCM.PREANE ---
Preanesthetic Assessment - Procedure Proposed Procedure: ky - Anesthesia/Transfusion/Family Hx Anesthesia History: Prior Anesthesia Without Reaction Family History of Anesthesia Reaction: No Transfusion History: No Prior Transfusion(s) - Review of Systems General: No Symptoms Pulmonary: No Symptoms Cardiovascular: No Symptoms Gastrointestinal: No Symptoms Neurological: No Symptoms Other: Reports: None - Physical Assessment Vital Signs: Last Vital Signs Temp 98.1 F 06/05/19 20:25 Pulse 76 06/05/19 20:25 Resp 16 06/05/19 20:25 BP 138/67 06/05/19 20:25 Pulse Ox 97 06/05/19 20:25 Height: 5 ft 2 in Weight: 83.007 kg ASA Class: 2 Mental Status: Alert & Oriented x3 Airway Class: Mallampati = 1 Dentition: Reports: Normal Dentition Thyro-Mental Finger Breadths: 3 Mouth Opening Finger Breadths: 3 ROM/Head Extension: Full Lungs: Clear to Auscultation, Normal Respiratory Effort Cardiovascular: Regular Rate, Regular Rhythm, No Murmurs - Lab Values: Laboratory Last Values WBC 14.98 K/mm3 (3.98-10.04) H 06/05/19 19:47 RBC 4.12 M/mm3 (3.98-5.22) 06/05/19 19:47 Hgb 12.0 gm/dl (11.2-15.7) D 06/05/19 19:47 Hct 36.3 % (34.1-44.9) 06/05/19 19:47 MCV 88.1 fl (79.4-94.8) 06/05/19 19:47 MCH 29.1 pg (25.6-32.2) 06/05/19 19:47 MCHC 33.1 g/dl (32.2-35.5) 06/05/19 19:47 RDW Std Deviation 48.4 fL (36.4-46.3) H 06/05/19 19:47 Plt Count 226 K/mm3 (182-369) 06/05/19 19:47 MPV 10.1 fl (9.4-12.3) 06/05/19 19:47 Urine Opiates Screen Negative (BBTVWG=213) 06/05/19 20:15 Ur Buprenorphine Scrn Negative (CUTOFF=10) 06/05/19 20:15 Ur Oxycodone Screen Negative (BUT3BD=593) 06/05/19 20:15 Urine Methadone Screen Negative (SOJGOO=553) 06/05/19 20:15 Ur Propoxyphene Screen Negative (UJDQBI=660) 06/05/19 20:15 Ur Barbiturates Screen Negative (BVZIAU=938) 06/05/19 20:15 Ur Tricyclics Screen Negative (VXZHKM=327) 06/05/19 20:15 Ur Phencyclidine Scrn Negative (CUTOFF=25) 06/05/19 20:15 Ur Amphetamine Screen Negative (NLREOF=771) 06/05/19 20:15 U Methamphetamines Scrn Negative (GIBHLI=180) 06/05/19 20:15 U Benzodiazepines Scrn Negative (MJQMFT=080) 06/05/19 20:15 U Cocaine Metab Screen Negative (REGOPH=229) 06/05/19 20:15 U Marijuana (THC) Screen Negative (CUTOFF=50) 06/05/19 20:15 RPR Non-reactive (NONREACTIVE) 06/05/19 19:47 Blood Type O POSITIVE 06/05/19 19:47 Gel Antibody Screen Negative 06/05/19 19:47 - Allergies Allergies/Adverse Reactions: Allergies Allergy/AdvReac Type Severity Reaction Status Date / Time No Known Allergies Allergy Verified 06/05/19 19:23 - Blood Blood Available: No - Acknowledgements Anesthesia Type Planned: Epidural Pt an Appropriate Candidate for the Planned Anesthesia: Yes Alternatives and Risks of Anesthesia Discussed w Pt/Guardian: Yes Pt/Guardian Understands and Agrees with Anesthesia Plan: Yes PreAnesthesia Questionnaire - Past Health History Medical/Surgical History: Denies Medical/Surgical History Cardiovascular History: Reports: None Respiratory History: Reports: None Gastrointestinal History: Reports: GERD [employer]IC History: Reports: Hematologic History: Reports: Anemia - Past Surgical History Female Surgical History: Reports: Section - SUBSTANCE USE Smoking Status *Q: Former Smoker Tobacco Use Within Last Twelve Months: No Second Hand Smoke Exposure: No Days Per Week of Alcohol Use: 0 Recreational Drug Use History: No - HOME MEDS Home Medications: Home Meds Acetaminophen [Tylenol] 325 mg PO Q4H PRN 06/05/19 [History] Loratadine [Claritin] 10 mg PO BEDTIME 06/05/19 [History] No122/Iron/Folic Acid [ Multi Tablet] 1 each PO DAILY 06/05/19 [History] - CURRENT (IN HOUSE) MEDS Current Meds: Current Medications Diphenhydramine HCl (Benadryl) 25 mg IVPUSH Q6H PRN PRN Reason: pruritis Ephedrine Sulfate (Ephedrine Sulfate) 5 mg IVPUSH ASDIRECTED PRN PRN Reason: Hypotension Fentanyl (Sublimaze) 100 mcg EPIDUR Q3H PRN PRN Reason: Pain Last Admin: 06/05/19 22:00 Dose: 100 mcg Fentanyl/Bupivacaine HCl (Fentanyl/Bupivacaine/Ns 2 Mcg-0.125% 100 Ml) 100 ml EPIDUR ASDIRECTED PRN PRN Reason: Pain Last Admin: 06/05/19 22:01 Dose: 100 ml Lactated Ringer's (Ringers, Lactated) 1,000 mls @ 100 mls/hr IV ASDIRECTED ANDRÉS Last Admin: 06/05/19 21:50 Dose: 999 mls/hr Oxytocin/Lactated Ringer's (Pitocin In Lr 10 Units/1,000 Ml) 10 unit in 1,000 mls @ 500 mls/hr IV .CONTINUOUS ANDRÉS Nalbuphine HCl (Nubain) 10 mg IVPUSH Q2H PRN PRN Reason: Pain Ondansetron HCl (Zofran) 4 mg IVPUSH Q4H PRN PRN Reason: Nausea/Vomiting Sodium Chloride (Saline Flush) 10 ml FLUSH ASDIRECTED PRN PRN Reason: Keep Vein Open
[2019-06-06] MEDS ORDERED: Bupivacaine 0.25% 10 ML SDV ONE
[2019-06-06] MEDS ORDERED: Oxytocin/Lactated Ringers 20 UNIT/1,000 ML BAG IV SCH (06:50)
--- NOTE | 2019-06-06 07:13 | PCM.DEL ---
L & D Note - General Info Date of Service: 06/06/19 - Delivery Note Labor: Spontaneous Delivery Outcome: Livebirth Delivery Method: Spontaneous Vaginal Delivery-Single Delivery Mode: Spontaneous Presentation: Right Occiput Anterior (SHIRA) Nuchal Cord: None Anesthesia Type: Epidural Amniotic Fluid Description: Clear Episiotomy Type: None Laceration: 1st Degree Suture type: Vicryl Suture size: 2-0 Placenta: Intact, Spontaneous Cord: 3 Vessels Estimated Blood Loss: 100 : Bulb Syringe, Stimulated, Warmed, [place] Used, Warmer Used Delivery Comments (Free Text/Narrative):: Patient found to be complete and began pushing. With maternal pushing effort head delivered from an SHIRA presentation. No nuchal cord present. With gentle downward traction shoulders and body delivered. placed on maternal abdomen. Placenta delivered prior to cord being cut. Cord then clamped. Cord blood collected from placenta. Inspection of perineum showed a small 1st degree laceration which was repaired with a 2-0 vicryl - General Info Date of Service: 06/06/19 - Patient Data Vitals - Most Recent: Last Vital Signs Temp 36.7 C 06/05/19 20:25 Pulse 76 06/05/19 20:25 Resp 16 06/05/19 20:25 BP 138/67 06/05/19 20:25 Pulse Ox 97 06/05/19 20:25 Weight - Most Recent: 83.007 kg - Problem List & Annotations (1) 39 weeks gestation of SNOMED Code(s): 95944894 Code(s): Z3A.39 - 39 WEEKS GESTATION OF Status: Acute Current Visit: Yes (2) History of SNOMED Code(s): 234560647 Code(s): Z98.891 - HISTORY OF UTERINE SCAR FROM PREVIOUS SURGERY Status: Acute Current Visit: Yes (3) , delivered, current hospitalization SNOMED Code(s): 230036735 Code(s): O34.219 - MATERNAL CARE FOR UNSP TYPE SCAR FROM PREVIOUS DEL Status: Acute Current Visit: Yes - Problem List Review Problem List Initiated/Reviewed/Updated: Yes - My Orders Last 24 Hours: My Active Orders 06/05/19 19:15 Resuscitation Status Routine 06/05/19 19:16 Up ad Angela [RC] ASDIRECTED 06/05/19 19:32 Patient Status [ADT] Routine Activity as Tolerated [RC] PFP Communication Order [RC] ASDIRECTED Notify Provider [RC] PFP Notify Provider [RC] PRN Nalbuphine [Nubain] 10 mg IVPUSH Q2H PRN Ondansetron [Zofran] 4 mg IVPUSH Q4H PRN Sodium Chloride 0.9% [Saline Flush] 10 ml FLUSH ASDIRECTED PRN Electronic Heart Tones Ext w TOCO [WOMSER] Routine Electronic Heart Tones Internal [WOMSER] Per Unit Routine Peripheral IV Insertion Adult [OM.PC] Routine 06/05/19 19:33 Heart Tones [RC] ASDIRECTED Peripheral IV Care [RC] Q2HR 06/05/19 19:45 Lactated Ringers [Ringers, Lactated] 1,000 ml IV ASDIRECTED Oxytocin/Lactated Ringers [Pitocin in LR 10 Units/1,000 ML] 10 unit in 1,000 ml IV .CONTINUOUS 06/05/19 21:46 Urinary Catheter Assessment [RC] ASDIRECTED 06/05/19 22:00 Urinary Catheter Insertion [Insert Urinary Catheter] [OM.PC] Q24H 06/05/19 Dinner Regular Diet [DIET] Regular Diet [DIET] - Assessment Assessment:: PPD#0 - Plan Plan:: * Routine cares * Breast feeding * Discharge home in 1-2 days
[2019-06-06] MEDS ORDERED: Witch Hazel Medicated Pads 40/Jar TOP PRN (09:01)
[2019-06-06] MEDS ORDERED: Acetaminophen 325 MG Tab PO PRN (09:01)
[2019-06-06] MEDS ORDERED: Benzocaine/Menthol 20%-0.5% Spray 56 GM Canister TOP PRN (09:01)
[2019-06-06] MEDS ORDERED: Ibuprofen 600 MG Tab PO PRN (09:01)
[2019-06-06] MEDS ORDERED: Docusate Sodium 100 MG Cap PO PRN (09:01)
--- NOTE | 2019-06-07 07:49 | PCM.DCSUM1 ---
Discharge Summary - Hospital Course Free Text/Narrative:: Raina is a 24-year-old now 2 para 2002 white female who was admitted on 06/05/2019 in active labor at 39-2/7 weeks gestational age. She had a previous section and desired a trial of labor after for an attempt at vaginal after section. She progressed in labor and on she delivered a viable, ellis . Delivery was in an SHIRA position. There is a first-degree laceration which was repaired with 2-0 Vicryl. Post patient has done well. She is voiding well, and bleeding without problems and has minimal lochia. Her vital signs have been stable. Patient is desiring discharge home.: Good Diagnosis: Stroke: No - Discharge Data Discharge Date: 06/07/19 Discharge Disposition: Home, Self-Care 01 Condition: Good - Referral to Home Health Primary Care Physician: Elisabeth Mosley MD - Patient Instructions Diet: Regular Diet as Tolerated Activity: As Tolerated (No intercourse or tampons until bleeding resolves) Driving: May Drive Today Showering/Bathing: May Shower (May take a bath) Notify Provider of: Fever, Increased Pain, Swelling and Redness, Nausea and/or Vomiting - Discharge Plan Home Medications: Home Meds Acetaminophen [Tylenol] 325 mg PO Q4H PRN 06/05/19 [History] Loratadine [Claritin] 10 mg PO BEDTIME 06/05/19 [History] No122/Iron/Folic Acid [ Multi Tablet] 1 each PO DAILY 06/05/19 [History] Acetaminophen [Tylenol] 650 mg PO Q4H PRN tablet 06/07/19 [Rx] Ibuprofen [Motrin] 600 mg PO Q6H PRN tablet 06/07/19 [Rx] Referrals: Elisabeth Mosley MD [Primary Care Provider] - (Patient is to call [facility] to make an appointment for follow-up with Dr. Mosley.) - Discharge Summary/Plan Comment DC Time >30 min.: No Discharge Summary/Plan Comment: Discharge instructions: 1. Discharge home 2. Diet, activity and follow-up discussed with patient. 3. Precautions given concern increased pain, bleeding, temperature, signs/ symptoms of DVT/PE. 4. Medications per home medication was printed, discussed with and given to the patient. 5. Patient is to call [facility] to make a follow-up appointment with Dr. Mosley. Diagnosis: Term -delivered Condition: Good - Patient Data Vitals - Most Recent: Last Vital Signs Temp 36.6 C 06/07/19 03:25 Pulse 74 06/07/19 03:25 Resp 12 06/07/19 03:25 BP 123/72 06/07/19 03:25 Pulse Ox 98 06/07/19 03:25 Weight - Most Recent: 83.007 kg I&O - Last 24 hours: Intake & Output 06/06/19 06/07/19 06/07/19 22:59 06:59 14:59 Intake Total 480 Balance 480 Med Orders - Current: Current Medications Acetaminophen (Tylenol) 650 mg PO Q4H PRN PRN Reason: mild pain or fever Benzocaine/Menthol (Dermoplast Pain Relief [place]) 0 gm TOP ASDIRECTED PRN PRN Reason: Perineal Comfort Measure Last Admin: 06/06/19 10:22 Dose: 1 can Docusate Sodium (Colace) 100 mg PO BID PRN PRN Reason: Constipation Oxytocin/Lactated Ringer's (Pitocin In Lr 20 Units/1,000 Ml) 20 unit in 1,000 mls @ 250 mls/hr IV ASDIRECTED ANDRÉS; Protocol Last Admin: 06/06/19 07:00 Dose: 250 mls/hr Ibuprofen (Motrin) 600 mg PO Q6H PRN PRN Reason: Mild pain or fever Witch Jaki (Tucks) 1 pad TOP ASDIRECTED PRN PRN Reason: Perineal Comfort Measure Last Admin: 06/06/19 10:22 Dose: 1 box Discontinued Medications Bupivacaine HCl (Sensorcaine-Mpf 0.25%) 20 ml .ROUTE .STK-MED ONE Stop: 06/06/19 00:01 Diphenhydramine HCl (Benadryl) 25 mg IVPUSH Q6H PRN PRN Reason: pruritis Ephedrine Sulfate (Ephedrine Sulfate) 5 mg IVPUSH ASDIRECTED PRN PRN Reason: Hypotension Fentanyl (Sublimaze) 100 mcg EPIDUR Q3H PRN PRN Reason: Pain Last Admin: 06/05/19 22:00 Dose: 100 mcg Fentanyl/Bupivacaine HCl (Fentanyl/Bupivacaine/Ns 2 Mcg-0.125% 100 Ml) 100 ml EPIDUR ASDIRECTED PRN PRN Reason: Pain Last Admin: 06/05/19 22:01 Dose: 100 ml Lactated Ringer's (Ringers, Lactated) 1,000 mls @ 100 mls/hr IV ASDIRECTED ANDRÉS Last Admin: 06/05/19 22:42 Dose: 40 mls/hr Oxytocin/Lactated Ringer's (Pitocin In Lr 10 Units/1,000 Ml) 10 unit in 1,000 mls @ 500 mls/hr IV .CONTINUOUS ANDRÉS Nalbuphine HCl (Nubain) 10 mg IVPUSH Q2H PRN PRN Reason: Pain Ondansetron HCl (Zofran) 4 mg IVPUSH Q4H PRN PRN Reason: Nausea/Vomiting Sodium Chloride (Saline Flush) 10 ml FLUSH ASDIRECTED PRN PRN Reason: Keep Vein Open
--- NOTE | 2019-06-07 13:41 | PCM48HPAN ---
Post Anesthesia Note - EVALUATION WITHIN 48HRS OF ANESTHETIC Vital Signs in Normal Range: Yes Patient Participated in Evaluation: Yes Respiratory Function Stable: Yes Airway Patent: Yes Cardiovascular Function Stable: Yes Hydration Status Stable: Yes Pain Control Satisfactory: Yes Nausea and Vomiting Control Satisfactory: Yes Mental Status Recovered: Yes Vital Signs: Last Vital Signs Temp 97.9 F 06/07/19 03:25 Pulse 74 06/07/19 03:25 Resp 12 06/07/19 03:25 BP 123/72 06/07/19 03:25 Pulse Ox 98 06/07/19 03:25 - COMMENTS/OBSERVATIONS Free Text/Narrative:: Patient is on her day 1. Mentioned having some minor back soreness at this time. Denied any headache or lightheadedness. Ambulating, no difficulty urinating.
== END 2019-06-07 13:25 | disposition home or self-care (01) | DRG 807 ==
LOC: JD.OBCHECK 18:16 → JD.OB 18:18 → JD.OBCHECK 19:32 → JD.OB 20:56 → OBSVTOIN 06-06 06:50 → JD.MS 06-06 06:51 → JD.OB 06-06 08:06
PROVIDERS: ADMIT Obstetrics & Gynecology; ATTEND Obstetrics & Gynecology
PROC: 10E0XZZ Delivery of Products of Conception, External Approach (ICD-10-PCS; principal; 2019-06-06)
PROC: 0HQ9XZZ Repair Perineum Skin, External Approach (ICD-10-PCS; 2019-06-06)
PROC: 3E0R3BZ Introduction of Anesthetic Agent into Spinal Canal, Percutaneous Approach (ICD-10-PCS; 2019-06-06)
DX: O34.211 Maternal care for low transverse scar from previous cesarean delivery (principal); Z37.0 Single live birth; O70.0 First degree perineal laceration during delivery; Z3A.39 39 weeks gestation of pregnancy
CPT/HCPCS: 36415; 51702; 59025; 59409; 80306; 85027; 86592; 86850; 86900; 86901; A9270-GY; J2590; J3010; J3490; J7120